=== PATIENT | female | born 1995 | race African-American/Black ===

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

== ENCOUNTER 2017-08-03 07:54 | Emergency (ER) | payer MEDICAID, SELFPAY ==
[2017-08-03] MEDS ORDERED: Benzonatate 100 MG CAP ONE (08:15)
[2017-08-03] MEDS ORDERED: Ketorolac Tromethamine 60 MG/2 ML VIAL ONE (08:15)
== END 2017-08-03 08:30 | disposition home or self-care (01) ==
LOC: BURERS 07:54
DX: J06.9 Acute upper respiratory infection, unspecified (principal); R07.89 Other chest pain
CPT/HCPCS: 96372; J1885

== ENCOUNTER 2018-01-22 12:24 | Emergency (ER) | payer SELFPAY | END 2018-01-22 12:47 | disposition home or self-care (01) | LOC: BURERS 12:24 | DX: H10.9 Unspecified conjunctivitis (principal) | CPT/HCPCS: 99282 ==

== ENCOUNTER 2020-05-13 21:00 | Emergency (ER) | payer SELFPAY ==
[2020-05-13 21:48] LABS: #Basophils 0.1 thou/uL (0.0-0.2); #Eosinphils 0.2 thou/uL (0.0-0.7); #Lymphocytes 2.6 thou/uL (1.20-3.40); #Monocytes 0.8 thou/uL (0.11-0.59); #Neutrophils 4.6 thou/uL (1.40-6.50); %Basophils 1.5 % (0.0-1.0); %Eosinophils 2.2 % (0.0-10.0); %Lymphocytes 31.3 % (21.0-51.0); %Monocytes 9.4 % (0.0-10.0); %Neutrophils 55.6 % (42.0-75.0); Hemoglobin 13.8 g/dL (12.0-16.0); Mean Corpuscular HGB CONC 32.2 g/dL (32.0-36.0); Mean Corpuscular Hemoglobin 29.5 pg (27.0-31.0); Mean Corpuscular Volume 91.5 fL (78.0-98.0); Mean Platelet Volume 8.8 fL (7.4-10.4); Platelet Count 286 thou/uL (130-400); RBC Distribution Width 12.2 % (11.5-14.5); White Blood Cell (WBC) Count 8.3 thou/uL (4.8-10.8)
[2020-05-13 21:49] LABS: BHCG - Serum Negative (NEGATIVE); Pregs Control Background? CLEAR/WHITE (CLR/WHITE); Pregs Control Bar Appear? YES (CONTROL BAR)
[2020-05-13 21:58] LABS: Acetaminophen Less than 6.0 mcg/mL (10.0-30.0); Alcohol 165 mg/dL (Less than 10); Salicylate Less than 8.0 mg/dL (15.0-30.0)
[2020-05-13 22:00] LABS: ALT (SGPT) 11 U/L (8-55); AST (SGOT) 15 U/L (5-34); Albumin 4.3 g/dL (3.5-5.0); Alkaline Phosphatase 65 U/L (40-110); Anion Gap 16 mmol/L (10-20); BUN (Urea Nitrogen) 11 mg/dL (7.0-18.7); Bilirubin, Total 0.3 mg/dL (0.2-1.2); Calc. Creatinine Clearance 0 mL/min (70-130); Carbon Dioxide 22 mmol/L (22-29); Chloride 105 mmol/L (98-107); Estimated GFR-MDRD Greater than 90; Globulin 3.4 g/dL (2.4-3.5); Glucose 112 mg/dL (70-105); Potassium 3.7 mmol/L (3.5-5.1); Protein, Total 7.7 g/dL (6.0-8.3); Sodium 139 mmol/L (136-145)
[2020-05-13 22:12] LABS: Amphetamine Not Detected (NotDetected); Barbiturates Screen Not Detected (NotDetected); Benzodiazepine Screen Not Detected (NotDetected); Cocaine Metabolite Screen Not Detected (NotDetected); Medtox Control Line Valid? VALID (VALID); Methadone Not Detected (NotDetected); Methamphetamine Not Detected (NotDetected); Opiate Screen Not Detected (NotDetected); Oxycodone Screen Not Detected (NotDetected); Phencyclidine (PCP) Not Detected (NotDetected); THC/Cannabinoid Screen Not Detected (NotDetected); Tricyclic Screen Not Detected (NotDetected)
== END 2020-05-14 04:20 | disposition home or self-care (01) ==
LOC: BURERS 21:00
DX: F10.129 Alcohol abuse with intoxication, unspecified (principal); R45.851 Suicidal ideations; Z87.891 Personal history of nicotine dependence
CPT/HCPCS: 36415; 80053; 80306; 80307; 84703; 85025; 99285